=== PATIENT | female | born 1955 | race Caucasian/White ===

== ENCOUNTER 2019-01-26 10:45 | Emergency (ER) | payer OTHER ==
[~2019-01-26] VITALS: Ht 172.7 cm; Wt 59.0 kg
[2019-01-26] MEDS ORDERED: TESSALON PERLE100 M1 PO (11:21)
[2019-01-26] MEDS ORDERED: ZITHROMAX500 MG PO (11:21)
[2019-01-26] MEDS ORDERED: PROMETH-CODEIN 65 ML PO (11:21)
== END 2019-01-26 12:16 | disposition home or self-care (01) ==
LOC: ER 10:45
DX: J06.9 Acute upper respiratory infection, unspecified (principal)

== ENCOUNTER 2019-07-06 15:17 | Outpatient (CLI) | payer BC ==
[~2019-07-06 15:17] MED LIST: PROMETH-CODEIN 65 ML PO; TESSALON PERLE100 M1 PO; ZITHROMAX500 MG PO
== END 2019-07-06 15:34 | disposition home or self-care (01) ==
LOC: LAB 15:17
DX: C91.10 Chronic lymphocytic leukemia of B-cell type not having achieved remission (principal)

== ENCOUNTER 2019-08-07 12:19 | Outpatient (CLI) | payer BC | END 2019-08-07 12:23 | disposition home or self-care (01) | LOC: LAB 12:19 | DX: C91.10 Chronic lymphocytic leukemia of B-cell type not having achieved remission (principal) ==

== ENCOUNTER → 2019-08-27 | Outpatient (CLI) | payer BC | END | disposition home or self-care (01) | LOC: SONOGRAMA 11:31 | DX: E04.2 Nontoxic multinodular goiter (principal) ==

== ENCOUNTER 2019-09-10 12:35 | Outpatient (CLI) | payer BC | END 2019-09-10 15:00 | disposition home or self-care (01) | LOC: LAB 12:35 | PROVIDERS: ATTEND Internal Medicine Hematology & Oncology | DX: C91.10 Chronic lymphocytic leukemia of B-cell type not having achieved remission (principal) ==